=== PATIENT | female | born 1995 | race Caucasian/White ===

== ENCOUNTER 2018-10-05 20:18 | Emergency (ER) | payer OTHER ==
[~2018-10-05] VITALS: Ht 165.1 cm; Wt 94.3 kg
[~2018-10-05 20:18] MED LIST: BIRTH CONTROL; IBUPROFEN 800800 M1 PO; KEFLEX500 M1 PO; MACROBID 100 M100 M1 PO; PYRIDIUM200 MG PO; TRI-SPRINTEC1 EACH PO; TYLENOL325 MG PO
[2018-10-05 20:30] VITALS: BP 142/80
[2018-10-05] MEDS ORDERED: BACTRIM DS TAB1 EACH PO (20:37)
[2018-10-05] MEDS ORDERED: KEFLEX500 M1 PO (20:37)
== END 2018-10-05 20:41 | disposition home or self-care (01) ==
LOC: M.ERS 20:18
DX: S40.861A Insect bite (nonvenomous) of right upper arm, initial encounter (principal); L08.9 Local infection of the skin and subcutaneous tissue, unspecified; Z91.09 Other allergy status, other than to drugs and biological substances; W57.XXXA Bitten or stung by nonvenomous insect and other nonvenomous arthropods, initial encounter; Y93.89 Activity, other specified; Y92.89 Other specified places as the place of occurrence of the external cause; Y99.8 Other external cause status